=== PATIENT | male | born 1995 | race African-American/Black ===

== ENCOUNTER 2024-08-26 12:11 | Outpatient (CLI) | payer SELFPAY | END 2024-08-26 23:59 | disposition home or self-care (01) | LOC: LAB.DROPOF 08-27 09:53 | PROVIDERS: PCP Student in an Organized Health Care Education/Training Program; Visit Provider Student in an Organized Health Care Education/Training Program | DX: R30.0 Dysuria (principal) | CPT/HCPCS: 87086 ==